=== PATIENT | female | born 1945 | race Caucasian/White ===

== ENCOUNTER 2023-04-01 14:47 | Emergency (ER) | payer OTHER, SELFPAY ==
[2023-04-01 14:50] VITALS: BP 161/74; PULSE 86; RESP 16; TEMP 37; O2SAT 98; BMI 33.2
[2023-04-01 15:41] LABS: Appearance Urine UA CLEAR; Bilirubin Urine UA NEGATIVE (NEGATIVE); Color Urine UA YELLOW; Glucose Urine UA NEGATIVE (Negative); Ketones Urine UA 1+ (NEGATIVE); Leukocyte Esterase Urine UA TRACE (NEGATIVE); Nitrite Urine UA POSITIVE (Negative); Occult Blood Urine UA TRACE-INTACT (Negative); Protein Urine UA NEGATIVE (Negative); Urobilinogen Urine UA 0.2 E.U./dL (0.2); pH Urine UA 5.5 (4.5-8.0)
[2023-04-01 15:42] LABS: Urine Volume 10mL (spun)
[2023-04-01 15:44] LABS: Bacteria Urine Many (>30); Culture Indicated Urine Specimen Cultured; RBC Urine 0-1/HPF (0-5/HPF); Squamous Epithelial Cell Urine 0-1 /HPF (0-5/HPF); WBC Urine 5-10/HPF (0-5/HPF)
[2023-04-01 16:50] LABS: Add Manual Diff / Slide Review NO; Basophils Absolute Auto 100 /uL (0-100); Basophils Percent Auto 1.1 % (0-2); Eosinophils Absolute Auto 300 /uL (0-450); Eosinophils Percent Auto 4.2 % (2-4); Hematocrit 36.5 % (36-46); Lymphocytes Absolute Auto 900 /uL (1100-4500); Lymphocytes Percent Auto 13.1 % (25-40); Mean Corpuscular HGB Conc 32.9 % (30-36); Mean Corpuscular Hemoglobin 27.5 PG (26-34); Mean Corpuscular Volume 83.4 fL (80-100); Monocytes Absolute Auto 600 /uL (0-900); Monocytes Percent Auto 8.5 % (3-14); Neutrophils Absolute Auto 5000 /uL (1500-7000); Neutrophils Percent Auto 73.1 % (50-75); Platelet Count 231 X10^3/uL (150-400); Red Blood Cell Count 4.38 X10^6/uL (4.0-5.2); Red Cell Distribution Width 14.1 % (11.6-14.8); White Blood Cell Count 6.9 X10^3/uL (4.5-11.0)
--- NOTE | 2023-04-01 16:50 | ED.ABDPAIN ---
HPI - Abdominal Pain <Acacia Terrell PA-C - Last Filed: 04/01/23 18:02> General Chief Complaint: Abdominal Pain Stated Complaint: abd pain Source: patient Mode of arrival: Family Vehicle History of Present Illness HPI narrative: Patient is a 77-year-old female who presents with lower abdominal pain x4 days. She denies any associated nausea or vomiting, she denies fever, chills. She is pain-free while sitting but when she stands, she experiences excruciating pain across her lower abdomen. When she is standing, she is again pain-free. The pain only occurs during the movement from sitting to standing. She reports a remote history of 2 ectopic pregnancies requiring surgery and feels like the pain is along those incisions. She was having frequent small round hard bowel movements, 7-8 times per day until she ate some prunes and drank a laxative tea and started having diarrhea. This happened yesterday. She does not know if this is associated with her abdominal pain. She had a bad UTI in 2019 and since then has been self catheterizing herself once daily before bedtime. She reports she normally gets 100-200 mL of urine. This morning she went to a walk-in clinic on [facility] and they evaluated her and diagnosed her with a UTI but told her she needed to go to the emergency department. They did not prescribe antibiotics. Related Data Previous Rx's Medication Instructions Recorded cefdinir 300 mg capsule 300 mg PO BID UTI #8 caps 04/01/23 Review of Systems <Acacia Terrell PA-C - Last Filed: 04/01/23 18:02> Review of Systems ROS Unobtainable: All systems reviewed & are unremarkable except as noted in HPI and below Exam <Acacia Terrell PA-C - Last Filed: 04/01/23 18:02> Narrative Exam Narrative: GENERAL: 77 year old patient appears stated age. Well-developed patient, in no acute distress. NEURO: AOx3. HEAD: Atraumatic. Normocephalic. EYES: Pupils equal round and reactive. Extraocular motions intact. No scleral icterus. No injection or drainage. ENT: Nose without bleeding or purulent drainage. Airway patent. NECK: Trachea midline. Non tender CARDIOVASCULAR: Regular rate and rhythm without murmurs, gallops, or rubs. RESPIRATORY: Clear to auscultation. Breath sounds equal bilaterally. No wheezes, rales, or rhonchi. GASTROINTESTINAL: Abdomen soft, non-tender, nondistended. No CVA tenderness. EXTREMITIES: No edema or joint tenderness. SKIN: No rash or erythema of visible areas Initial Vital Signs Initial Vital Signs: Vital Signs Temperature 98.6 F 04/01/23 14:50 Pulse Rate 86 04/01/23 14:50 Respiratory Rate 16 04/01/23 14:50 Blood Pressure 161/74 H 04/01/23 14:50 Pulse Oximetry 98 04/01/23 14:50 Oxygen Delivery Method Room Air 04/01/23 14:50 <Seda Rod DO - Last Filed: 04/07/23 09:46> Initial Vital Signs Initial Vital Signs: Vital Signs Temperature 98.6 F 04/01/23 14:50 Pulse Rate 86 04/01/23 14:50 Respiratory Rate 16 04/01/23 14:50 Blood Pressure 161/74 H 04/01/23 14:50 Pulse Oximetry 98 04/01/23 14:50 Oxygen Delivery Method Room Air 04/01/23 14:50 Course <Acacia Terrell PA-C - Last Filed: 04/01/23 18:02> Orders Ordered: Discontinued Medications Cefdinir (Cefdinir 300 Mg Capsule) 300 mg PO NOW ONE Stop: 04/01/23 17:15 Last Admin: 04/01/23 17:32 Dose: 300 mg Documented By: SYLVIA Cefdinir (Cefdinir 300 Mg Capsule) 300 mg PO NOW ONE Stop: 04/01/23 17:16 Last Admin: 04/01/23 17:41 Dose: 300 mg Documented By: SYLVIA Cefdinir (Cefdinir 300 Mg Capsule) 300 mg PO NOW Stop: 04/01/23 23:59 Cefdinir (Cefdinir 300 Mg Capsule) 300 mg PO DAILY Stop: 04/01/23 23:59 Sodium Chloride (Normal Saline 0.9%) 1,000 mls @ 500 mls/hr IV BOLUS ONE Stop: 04/01/23 18:24 Last Admin: 04/01/23 16:47 Dose: Not Given Documented By: [facility] Sodium Chloride (Normal Saline 0.9%) 500 mls @ 1,000 mls/hr IV BOLUS ONE Stop: 04/01/23 17:13 Last Infusion: 04/01/23 17:26 Dose: Infused Documented By: Admin: 04/01/23 16:51 Dose: 1,000 mls/hr Documented By: CONSTANTINO Vital Signs Vital signs: Vital Signs - 8 hr 04/01/23 14:50 04/01/23 17:42 Temperature 98.6 F Pulse Rate 86 75 Respiratory Rate 16 14 Blood Pressure 161/74 H 167/74 H Pulse Oximetry 98 97 Oxygen Delivery Method Room Air Room Air <Seda Rod DO - Last Filed: 04/07/23 09:46> Orders Ordered: Discontinued Medications Cefdinir (Cefdinir 300 Mg Capsule) 300 mg PO NOW ONE Stop: 04/01/23 17:15 Last Admin: 04/01/23 17:32 Dose: 300 mg Documented By: SYLVIA Cefdinir (Cefdinir 300 Mg Capsule) 300 mg PO NOW ONE Stop: 04/01/23 17:16 Last Admin: 04/01/23 17:41 Dose: 300 mg Documented By: SYLVIA Cefdinir (Cefdinir 300 Mg Capsule) 300 mg PO NOW Stop: 04/01/23 23:59 Cefdinir (Cefdinir 300 Mg Capsule) 300 mg PO DAILY Stop: 04/01/23 23:59 Sodium Chloride (Normal Saline 0.9%) 1,000 mls @ 500 mls/hr IV BOLUS ONE Stop: 04/01/23 18:24 Last Admin: 04/01/23 16:47 Dose: Not Given Documented By: VALENTÍN Sodium Chloride (Normal Saline 0.9%) 500 mls @ 1,000 mls/hr IV BOLUS ONE Stop: 04/01/23 17:13 Last Infusion: 04/01/23 17:26 Dose: Infused Documented By: Admin: 04/01/23 16:51 Dose: 1,000 mls/hr Documented By: VALENTÍN Vital Signs Vital signs: Vital Signs - 8 hr 04/01/23 14:50 04/01/23 17:42 Temperature 98.6 F Pulse Rate 86 75 Respiratory Rate 16 14 Blood Pressure 161/74 H 167/74 H Pulse Oximetry 98 97 Oxygen Delivery Method Room Air Room Air MDM - Abdominal Pain <Acacia Terrell PA-C - Last Filed: 04/01/23 18:02> Lab Data 04/01/23 16:31 01/31/24 16:31 Labs: Lab Results 04/01/23 04/01/23 Range/Units 15:38 16:31 WBC 6.9 (4.5-11.0) X10^3/uL RBC 4.38 (4.0-5.2) X10^6/uL Hgb 12.0 (12.0-16.0) g/dL Hct 36.5 (36-46) % MCV 83.4 (80-100) fL MCH 27.5 (26-34) PG MCHC 32.9 (30-36) % RDW 14.1 (11.6-14.8) % Plt Count 231 (150-400) X10^3/uL Neut % (Auto) 73.1 (50-75) % Lymph % (Auto) 13.1 L (25-40) % [place]ady % (Auto) 8.5 (3-14) % Eos % (Auto) 4.2 H (2-4) % Baso % (Auto) 1.1 (0-2) % Neut # (Auto) 5000 (0077-5879) /uL Lymph # (Auto) 900 L (8668-7796) /uL Grady # (Auto) 600 (0-900) /uL Eos # (Auto) 300 (0-450) /uL Baso # (Auto) 100 (0-100) /uL Sodium 139 (137-145) mmol/L Potassium 4.0 (3.4-5.1) mmol/L Chloride 108 H (98-107) mmol/L Carbon Dioxide 24 (22-32) mmol/L BUN 16 (7-17) mg/dL Creatinine 0.56 (0.52-1.04) mg/dL Estimated GFR > 60 (>60) mL/min BUN/Creatinine Ratio 28.6 H (6-22) Glucose 110 (80-110) mg/dL Calcium 10.5 H (8.4-10.2) mg/dL Total Bilirubin 0.9 (0.2-1.3) mg/dL AST 24 (14-36) IU/L ALT 13 (<35) IU/L Alkaline Phosphatase 77 (38-126) U/L Ammonia 14 (9-30) umol/L Total Protein 8.0 (6.3-8.2) g/dL Albumin 4.1 (3.5-5.0) g/dL Globulin 3.9 (1.7-4.1) g/dL Albumin/Globulin Ratio 1.1 (1.0-2.8) Lipase 104 (23-300) U/L Urine Color Yellow Urine Appearance Clear Urine pH 5.5 (4.5-8.0) Ur Specific [place] 1.010 (1.000-1.035) Urine Protein Negative (Negative) Urine Glucose (UA) Negative (Negative) g/dL Urine Ketones 1+ H (NEGATIVE) Urine Occult Blood Trace-intact (Negative) Urine Nitrate Positive H (Negative) Urine Bilirubin Negative (NEGATIVE) Urine Urobilinogen 0.2 (0.2) E.U./dL Ur Leukocyte Esterase Trace H (NEGATIVE) Urine RBC 0-1/hpf (0-5/HPF) Urine WBC 5-10/hpf H (0-5/HPF) Ur Squamous Epith Cells 0-1 /hpf (0-5/HPF) Urine Bacteria Many (>30) H (None) Ur Culture Indicated? Specimen cultured Vol Urine Centrifuged 10ml (spun) MDM Narrative Medical decision making narrative: Multiple etiologies for patient's symptoms considered including, but not limited to: UTI, pyelonephritis, colitis, small-bowel obstruction, mesenteric ischemia, diverticulitis, adhesions from previous abd surgery UA consistent with urinary tract infection. Patient would like to know whether this urinary tract infection is due to her hygiene with self catheterizing or is due to not self-catheterizing enough. We had a long discussion about difficulty in determining this. I suspect that many of her symptoms are related to the UTI but we will check labs today and consider imaging. Labs without clinically significant abnormality. Based on her lab findings and how well she looks and with normal vital signs, I doubt intra-abdominal pathology/surgical abdomen at this time. We had a shared decision-making conversation regarding benefits and risks of doing advanced imaging such as CT scan of the abdomen and pelvis today to further evaluate the source of her abdominal pain. Patient informs me that she had cervical cancer about 25 years ago for which she received significant radiation therapy and was told that she had already received her lifetime limit of radiation. We discussed that because of her previous exposure to radiation, she is at increased risk of further malignancy, but we also do not wish to expose her to further radiation at this time. I suggested that patient is stable at this time to go home with oral antibiotics; if she gets worse or does not improve with antibiotics, she should definitely have imaging o her abdomen. If she gets better with the antibiotics, then her symptoms were likely due to her UTI. Patient and are agreeable to this plan and appreciate not having to have additional testing today. She was given 1 dose of cefdinir in the emergency room for UTI and 1 dose prescribed for the morning as they [place] and will not be able to clam picker the medications tonight. The rest of the prescription was sent to their preferred pharmacy. Patient understands strict return precautions Patient's symptoms improved over duration of stay with above-stated therapies. Findings and discharge diagnosis discussed with patient/family followed by verbalization of understanding Return precautions discussed with patient/family whom verbalize understanding of diagnosis and plan <Seda Rod, DO - Last Filed: 04/07/23 09:46> Lab Data Labs: Lab Results 04/01/23 04/01/23 Range/Units 15:38 16:31 WBC 6.9 (4.5-11.0) X10^3/uL RBC 4.38 (4.0-5.2) X10^6/uL Hgb 12.0 (12.0-16.0) g/dL Hct 36.5 (36-46) % MCV 83.4 (80-100) fL MCH 27.5 (26-34) PG MCHC 32.9 (30-36) % RDW 14.1 (11.6-14.8) % Plt Count 231 (150-400) X10^3/uL Neut % (Auto) 73.1 (50-75) % Lymph % (Auto) 13.1 L (25-40) % Grady % (Auto) 8.5 (3-14) % Eos % (Auto) 4.2 H (2-4) % Baso % (Auto) 1.1 (0-2) % Neut # (Auto) 5000 (4847-9337) /uL Lymph # (Auto) 900 L (9007-0816) /uL Grady # (Auto) 600 (0-900) /uL Eos # (Auto) 300 (0-450) /uL Baso # (Auto) 100 (0-100) /uL Sodium 139 (137-145) mmol/L Potassium 4.0 (3.4-5.1) mmol/L Chloride 108 H (98-107) mmol/L Carbon Dioxide 24 (22-32) mmol/L BUN 16 (7-17) mg/dL Creatinine 0.56 (0.52-1.04) mg/dL Estimated GFR > 60 (>60) mL/min BUN/Creatinine Ratio 28.6 H (6-22) Glucose 110 (80-110) mg/dL Calcium 10.5 H (8.4-10.2) mg/dL Total Bilirubin 0.9 (0.2-1.3) mg/dL AST 24 (14-36) IU/L ALT 13 (<35) IU/L Alkaline Phosphatase 77 (38-126) U/L Ammonia 14 (9-30) umol/L Total Protein 8.0 (6.3-8.2) g/dL Albumin 4.1 (3.5-5.0) g/dL Globulin 3.9 (1.7-4.1) g/dL Albumin/Globulin Ratio 1.1 (1.0-2.8) Lipase 104 (23-300) U/L Urine Color Yellow Urine Appearance Clear Urine pH 5.5 (4.5-8.0) Ur Specific [place] 1.010 (1.000-1.035) Urine Protein Negative (Negative) Urine Glucose (UA) Negative (Negative) g/dL Urine Ketones 1+ H (NEGATIVE) Urine Occult Blood Trace-intact (Negative) Urine Nitrate Positive H (Negative) Urine Bilirubin Negative (NEGATIVE) Urine Urobilinogen 0.2 (0.2) E.U./dL Ur Leukocyte Esterase Trace H (NEGATIVE) Urine RBC 0-1/hpf (0-5/HPF) Urine WBC 5-10/hpf H (0-5/HPF) Ur Squamous Epith Cells 0-1 /hpf (0-5/HPF) Urine Bacteria Many (>30) H (None) Ur Culture Indicated? Specimen cultured Vol Urine Centrifuged 10ml (spun) Discharge Plan Departure Patient Disposition: Home Clinical Impression: Acute UTI Instructions: DI for Urinary Tract Infection (UTI) Activity Restrictions/Additional Instructions: *You have been diagnosed with urinary tract infection. Your labs are very reassuring today. As we discussed, we will hold off on doing any imaging of your abdomen. If your symptoms get worse or if they do not get better with antibiotics for urinary tract infection, please return for reassessment and likely CT scan. I have sent a prescription for a total of 5 days of antibiotic to your pharmacy. You have been given the 1st 2 doses here in the emergency department, 1 for tonight and 1 for the morning, so you will have 4 days' worth at the pharmacy. *What to do: *Please continue to take your regular medications as directed. [x] New medication prescriptions sent to your pharmacy: [facility] [ ] New medication written as a paper prescription [ ] No new medications given *Please follow up with your primary care provider in 2-3 days, call for an appointment. Let them know you were seen in the Emergency Department and that we ask that you be seen in follow up. We will electronically transmit a record of today's note if your PCP is in our system *If you do not have a primary care provider please contact the [facility] Resource line at [phone]. They will ask some questions about your medical history and help get you set up with a doctor in the community. *Return to Emergency Department if you should have any new, worsening or concerning symptoms, such as [fever greater than 101 F, shaking chills, worsening pain, persistent vomiting or other concerning symptoms]. Prescriptions: New cefdinir 300 mg capsule 300 mg PO BID Qty: 8 0RF Referrals: Francisca Jorge MD [Primary Care Provider] - Stand Alone Forms: Patient Portal/API ED Sign-out <Seda Rod DO - Last Filed: 04/07/23 09:46> Cosign ED Attending Taye Attestation: I was immediately available in the department for consultation.
[2023-04-01] MEDS: SODIUM CHLORIDE 0.9% 500 ML 1000 ML IV (16:51)
[2023-04-01 16:56] LABS: Alanine Aminotransferase 13 IU/L (<35); Albumin 4.1 g/dL (3.5-5.0); Albumin Globulin Ratio 1.1 (1.0-2.8); Alkaline Phosphatase 77 U/L (38-126); Aspartate Aminotransferase 24 IU/L (14-36); BUN Creatinine Ratio 28.6 (6-22); Bilirubin Total 0.9 mg/dL (0.2-1.3); Blood Urea Nitrogen 16 mg/dL (7-17); Calcium 10.5 mg/dL (8.4-10.2); Carbon Dioxide 24 mmol/L (22-32); Chloride 108 mmol/L (98-107); Estimated Glomerular Filt Rate > 60 mL/min (>60); Globulin 3.9 g/dL (1.7-4.1); Glucose 110 mg/dL (80-110); HEMOLYSIS < 15 (0-50); Lipase 104 U/L (23-300); Sodium 139 mmol/L (137-145)
[2023-04-01 17:01] LABS: Ammonia (NH3) 14 umol/L (9-30)
[2023-04-01] MEDS: CEFDINIR 300 MG CAPSULE PO ×2 (17:32→17:41)
[2023-04-01 17:42] VITALS: BP 167/74; PULSE 75; RESP 14; O2SAT 97
== END 2023-04-01 17:43 | disposition home or self-care (01) ==
PROVIDERS: Emergency Provider Physician Assistant; PCP Internal Medicine
DX: N39.0 Urinary tract infection, site not specified (principal)
CPT/HCPCS: 36415; 80053; 81001; 82140; 83690; 85025; 87077; 87086; 87186; 96360; 99284